=== PATIENT | female | born 1970 | race Caucasian/White ===

== ENCOUNTER 2016-07-05 09:42 | Emergency (ER) | payer OTHER ==
[~2016-07-05] VITALS: Ht 160 cm; Wt 64.4 kg
[~2016-07-05 09:42] MED LIST: MOTRIN600 MG PO; NORCO 5/3251 TABLET PO; PROBIOTIC1 EAC1 PO
[2016-07-05] MEDS ORDERED: MOTRIN800 MG PO (11:36)
[2016-07-05 11:54] VITALS: BP 136/70
== END 2016-07-05 11:58 | disposition home or self-care (01) ==
LOC: EME 09:42
DX: S16.1XXA Strain of muscle, fascia and tendon at neck level, initial encounter (principal); S40.011A Contusion of right shoulder, initial encounter; V49.40XA Driver injured in collision with unspecified motor vehicles in traffic accident, initial encounter; F17.200 Nicotine dependence, unspecified, uncomplicated
CPT/HCPCS: 71020; 72040; 73030